=== PATIENT | female | born 1945 | race Two or more races ===

== ENCOUNTER 2019-01-16 06:39 | Day surgery (SDC) | payer OTHER ==
[~2019-01-16 06:39] MED LIST: METROPOLOL PO; OSTERA TABLET1 EACH PO; PEPCID20 MG PO; PRAVASTATIN SOD40 MG PO; PROTONIX40 M1 PO; SYNTHROID50 MCG PO; [UNRECOGNIZED DRUG - OTHER] PO
== END 2019-01-16 13:05 | disposition home or self-care (01) ==
LOC: CIR.AMB 06:39
DX: M75.111 Incomplete rotator cuff tear or rupture of right shoulder, not specified as traumatic (principal); S46.211A Strain of muscle, fascia and tendon of other parts of biceps, right arm, initial encounter